=== PATIENT | male | born 1990 | race Hispanic/Latino ===

== ENCOUNTER 2018-08-02 22:11 | Emergency (ER) | payer MEDICAID, OTHER ==
[2018-08-02] MEDS ORDERED: MORPHINE SULFATE 8 MG/ML VIAL ONE (23:32)
[2018-08-02] MEDS ORDERED: ONDANSETRON HCL 4 MG/2 ML VIAL ONE (23:32)
[2018-08-02] MEDS ORDERED: SODIUM CHLORIDE 0.9% 1000ML 1,000 ML IV ONE (23:32)
[2018-08-02 23:36] LABS: EOSINOPHILS % (AUTO) 2.5 % (0.0-8.0); HEMATOCRIT 46.6 % (42-54); LYMPHOCYTES % (AUTO) 38.3 % (21.0-51.0); MEAN CORPUSCULAR HGB CONC 34.3 g/dL (32.0-36.0); MEAN CORPUSCULAR VOLUME 81.7 fL (79-99); MONOCYTES % (AUTO) 5.2 % (3.0-13.0); PLATELET COUNT (AUTO) 297 K/uL (130-400); RED CELL DISTRIBUTION WIDTH 13.9 % (11.0-15.5); WHITE BLOOD COUNT (AUTO) 8.7 K/uL (4.8-10.8)
[2018-08-02 23:44] LABS: CREATININE 1.3 mg/dL (0.5-1.5); POTASSIUM 3.7 mmol/L (3.5-5.1)
[2018-08-02 23:54] LABS: APPEARANCE,URINE Clear (CLEAR); BILIRUBIN,URINE Negative (NEGATIVE); COLOR,URINE Yellow (YELLOW); GLUCOSE, URINE (UA) Negative (NEGATIVE); KETONES,URINE Negative (NEGATIVE); LEUKOCYTE ESTERASE ,URINE Trace (NEGATIVE); NITRATE,URINE Negative (NEGATIVE); OCCULT BLOOD,URINE Small (NEGATIVE); PROTEIN,URINE >=1000 (NEGATIVE)
[2018-08-02 23:58] LABS: ALBUMIN 3.2 g/dL (3.5-5.0); BILIRUBIN,TOTAL 0.2 mg/dL (0.2-1.0); TOTAL PROTEIN, SERUM 7.3 g/dL (6.0-8.3)
[2018-08-03 00:01] LABS: BACTERIA,URINE Rare /HPF (None Seen); MUCUS,URINE Few LPF (None Seen); SQUAMOUS EPITHELIAL CELL,UR Rare /HPF (0-2)
[2018-08-03] MEDS ORDERED: HYDROMORPHONE 1 MG/1 ML AMP ONE ×2 (00:51→01:43)
== END 2018-08-03 02:44 | disposition home or self-care (01) ==
LOC: EDH 22:11
DX: R10.9 Unspecified abdominal pain (principal); M54.5 Low back pain; Z72.0 Tobacco use; Z88.8 Allergy status to other drugs, medicaments and biological substances
CPT/HCPCS: 36415; 74176; 80053; 81001; 84484; 85025; 93005; 96374; 96375; 96376; 99285; J1170 ×2; J2270; J2405; J7030

== ENCOUNTER 2018-11-27 23:04 | Emergency (ER) | payer OTHER ==
[2018-11-27] MEDS ORDERED: SODIUM CHLORIDE 0.9% 1000ML 1,000 ML IV ONE (23:49)
[2018-11-27] MEDS ORDERED: ACETAMINOPHEN EXTRA STRENGTH 500 MG TABLET ONE (23:49)
[2018-11-27] MEDS ORDERED: ONDANSETRON HCL 4 MG/2 ML VIAL ONE (23:49)
[2018-11-27 23:56] LABS: BASOPHILS % (AUTO) 0.3 % (0.0-5.0); EOSINOPHILS % (AUTO) 0.4 % (0.0-8.0); HEMATOCRIT 48.8 % (42-54); LYMPHOCYTES % (AUTO) 5.7 % (21.0-51.0); MEAN CORPUSCULAR HEMOGLOBIN 27.7 pg (27.0-33.0); MEAN CORPUSCULAR VOLUME 81.7 fL (79-99); MONOCYTES % (AUTO) 3.5 % (3.0-13.0); NEUTROPHILS % (AUTO) 90.1 % (40.0-77.0); PLATELET COUNT (AUTO) 307 K/uL (130-400); RED BLOOD CELL COUNT(AUTO) 5.97 MIL/uL (4.50-6.20); RED CELL DISTRIBUTION WIDTH 13.7 % (11.0-15.5); WHITE BLOOD COUNT (AUTO) 9.9 K/uL (4.8-10.8)
[2018-11-27 23:58] LABS: CREATININE 1.2 mg/dL (0.5-1.5); POTASSIUM 3.5 mmol/L (3.5-5.1)
[2018-11-28 00:09] LABS: ALBUMIN 3.2 g/dL (3.5-5.0); BILIRUBIN,TOTAL 0.5 mg/dL (0.2-1.0); TOTAL PROTEIN, SERUM 7.8 g/dL (6.0-8.3)
[2018-11-28 00:18] LABS: INR 0.96 (0.85-1.15); PARTIAL THROMBOPLASTIN TIME 32.1 SEC (26.3-35.5); PROTHROMBIN TIME 10.1 SEC (9.6-11.6)
[2018-11-28 00:44] LABS: RAPID GROUP A STREP NEGATIVE (NEGATIVE)
== END 2018-11-28 01:54 | disposition home or self-care (01) ==
LOC: EDH 23:04
DX: J11.1 Influenza due to unidentified influenza virus with other respiratory manifestations (principal); E86.0 Dehydration; R19.7 Diarrhea, unspecified; R11.2 Nausea with vomiting, unspecified; Z87.891 Personal history of nicotine dependence; Z88.6 Allergy status to analgesic agent
CPT/HCPCS: 36415; 71046; 80053; 82550; 83605; 83874; 84484; 85025; 85610; 85730; 87804 ×2; 87880; 93005; 96361; 96374; 99284; J2405; J7030

== ENCOUNTER 2021-03-06 14:49 | Inpatient (IN) | payer OTHER ==
[~2021-03-06] VITALS: Ht 182.9 cm; Wt 204.1 kg
[2021-03-06 16:01] LABS: EOSINOPHILS % (AUTO) 5.4 % (0.0-8.0); MEAN CORPUSCULAR HEMOGLOBIN 27.2 pg (27.0-33.0); MEAN CORPUSCULAR HGB CONC 32.6 g/dL (32.0-36.0); MEAN CORPUSCULAR VOLUME 83.5 fL (79-99); MONOCYTES % (AUTO) 7.2 % (3.0-13.0); PLATELET COUNT (AUTO) 316 K/uL (130-400); RED BLOOD CELL COUNT(AUTO) 5.15 MIL/uL (4.50-6.20); RED CELL DISTRIBUTION WIDTH 13.4 % (11.0-15.5)
[2021-03-06 16:14] LABS: ALBUMIN 2.9 g/dL (3.5-5.0); BILIRUBIN,TOTAL 0.3 mg/dL (0.2-1.0); CREATININE 2.1 mg/dL (0.5-1.5); POTASSIUM 3.9 mmol/L (3.5-5.1); TOTAL PROTEIN, SERUM 7.3 g/dL (6.0-8.3)
[2021-03-06 16:34] LABS: B-TYPE NATRIURETIC PEPTIDE 700 pg/mL (0-100)
[2021-03-06] MEDS ORDERED: NALOXONE HCL 0.4 MG/1 ML ML ONE (16:50)
[2021-03-06] MEDS ORDERED: FLUMAZENIL 0.1MG/1ML 5ML VIAL IV ONE (16:54)
[2021-03-06 17:06] LABS: ABG OXYGEN SATURATION 35.8 % (95.0-99.0); BASE EXCESS,VENOUS BLOOD GAS 1.5 (-2.0-3.0); HCO3,VENOUS BLOOD GAS 29.6 (21.0-28.0); PCO2,VENOUS BLOOD GAS 63 (35-48); PH,VENOUS BLOOD GAS 7.293 (7.350-7.450)
[2021-03-06 19:07] LABS: APPEARANCE,URINE Clear (CLEAR); BILIRUBIN,URINE Negative (NEGATIVE); COLOR,URINE Yellow (YELLOW); GLUCOSE, URINE (UA) Negative (NEGATIVE); KETONES,URINE Negative (NEGATIVE); LEUKOCYTE ESTERASE ,URINE Trace (NEGATIVE); NITRATE,URINE Negative (NEGATIVE); OCCULT BLOOD,URINE Negative (NEGATIVE); PROTEIN,URINE 300 mg/dL (NEGATIVE)
[2021-03-06 19:15] LABS: AMPHET/METH SCREEN,URINE NEGATIVE (NEGATIVE); BARBITURATE SCREEN, URINE NEGATIVE (NEGATIVE); BENZODIAZEPINES SCREEN,URINE POSITIVE (NEGATIVE); CANNABINOID SCREEN,URINE POSITIVE (NEGATIVE); COCAINE SCREEN,URINE POSITIVE (NEGATIVE); OPIATE SCREEN,URINE NEGATIVE (NEGATIVE); PHENCYCLIDINE SCREEN,URINE NEGATIVE (NEGATIVE)
[2021-03-06 19:19] LABS: RBC,URINE 0-1 /HPF (0-1)
[2021-03-06 19:20] LABS: BACTERIA,URINE Rare /HPF (None Seen)
[2021-03-06 19:22] LABS: SQUAMOUS EPITHELIAL CELL,UR Rare /HPF (0-2)
[2021-03-06 19:23] LABS: COARSE GRANULAR CASTS,URINE 0-2 /LPF (None Seen); HYALINE CASTS, URINE 0-1 /LPF (0-1 /LPF)
[2021-03-06] MEDS ORDERED: FAMOTIDINE 20MG TAB 20 MG TAB PO SCH (21:00)
[2021-03-06] MEDS ORDERED: HEPARIN SODIUM 5000UNIT/ML 1ML VIAL SQ SCH (21:00)
[2021-03-06] MEDS ORDERED: HYDRALAZINE HCL 20 MG/ML VIAL IV PRN (21:00)
[2021-03-06] MEDS ORDERED: LACTULOSE 20 GM/30 ML UDCUP PO PRN (21:00)
[2021-03-06] MEDS ORDERED: GUAIFENESIN-DM 200/20 MG 10 ML PO PRN (21:00)
[2021-03-06] MEDS ORDERED: DIPHENHYDRAMINE HCL 25 MG CAPSULE PO PRN (21:00)
[2021-03-06] MEDS ORDERED: ALBUTEROL SULFATE 0.083% 2.5 MG/3 ML INH IH PRN (21:00)
[2021-03-06] MEDS ORDERED: ONDANSETRON HCL 4 MG/2 ML VIAL IV PRN (21:00)
[2021-03-06] MEDS ORDERED: ACETAMINOPHEN 325 MG TAB PO PRN (21:00)
[2021-03-06] MEDS ORDERED: NITROGLYCERIN 0.4 MG SL TAB SL PRN (21:00)
[2021-03-06] MEDS ORDERED: MAG HYDROX/AL HYDROX/SIMETH ES 30 ML SUSP UDCUP PO PRN (21:00)
[2021-03-06 21:09] LABS: CHLORIDE,URINE RANDOM 30 mmol/L (110-250); POTASSIUM,URINE RANDOM 22 mmol/L (25-125); SODIUM,URINE RANDOM < 13 mmol/l (40-220)
[2021-03-06] MEDS ORDERED: ASPIRIN 81MG TAB.CHEW PO SCH (22:50)
[2021-03-07] MEDS ORDERED: HEPARIN SODIUM 5000UNIT/ML 1ML VIAL ONE ×2 (02:29→08:56)
[2021-03-07 07:19] LABS: ABG BASE EXCESS 3.7 mmol/L (-2.0-3.0); ABG HCO3 29.3 mmol/L (21.0-28.0); ABG OXYGEN SATURATION 96.3 % (95.0-99.0); ABG PCO2 48 mmHg (35-48)
[2021-03-07 08:12] LABS: CREATININE 1.9 mg/dL (0.5-1.5); TROPONIN I 0.18 ng/mL (0.00-0.06)
[2021-03-07] MEDS ORDERED: FAMOTIDINE 20MG TAB 20 MG TAB ONE (08:55)
== END 2021-03-07 14:03 | disposition left against medical advice (07) | DRG 917 ==
LOC: EDH 14:49 → EDHIP 14:50
PROVIDERS: ADMIT Internal Medicine; ATTEND Internal Medicine
DX: T50.911A Poisoning by multiple unspecified drugs, medicaments and biological substances, accidental (unintentional), initial encounter (principal); J96.01 Acute respiratory failure with hypoxia; J96.02 Acute respiratory failure with hypercapnia; E87.2 Acidosis; N17.9 Acute kidney failure, unspecified; G93.40 Encephalopathy, unspecified; Z68.44 Body mass index [BMI] 60.0-69.9, adult; F41.9 Anxiety disorder, unspecified; E66.9 Obesity, unspecified; F19.129 Other psychoactive substance abuse with intoxication, unspecified; Z20.822 Contact with and (suspected) exposure to COVID-19; Y92.89 Other specified places as the place of occurrence of the external cause; Z88.8 Allergy status to other drugs, medicaments and biological substances
CPT/HCPCS: 36415; 36600; 70450; 71045; 76770; 80048; 80051; 80053; 80305; 81001; 82435; 82550; 82803; 82947; 82948; 83605; 83874; 83880; 83930; 83935; 84132; 84295; 84484; 85018; 85025; 87426; 87804; 93005; 94664; 99291; G0378; J1644; J2310; J3490; U0003